=== PATIENT | male | born 1950 | race Caucasian/White ===

== ENCOUNTER → 2022-04-30 | Outpatient (CLI) | payer OTHER, MEDICARE ==
[2022-04-30] VITALS (15 sets, daily range): BP systolic 93–130; BP diastolic 34–77; PULSE 65–83; TEMP 97.5
[~2022-04-30] VITALS: Ht 165.1 cm; Wt 90.1 kg
[~2022-04-30] MED LIST: ASPIRIN E.C. 8181 MG PO; B-12 500 MCG PO; CALCIUM 600 MG1 EAC2 PO; CALTRATE-600 W600 MG PO; CLARITIN 1010 MG/TAB PO; COZAAR 25MG25 MG/TAB PO; CRESTOR5 MG PO; FLEXERIL 1010 MG/TAB PO; FOLIC ACID 40400 MCG PO; GARLIC100 MG PO; HYGROTON 2525 MG/TAB PO; IMFINZI120 MG/2.4; IRON TABLETS325 MG PO; LOPRESSOR 225 MG/TAB PO; MOBIC 7.5MG7.5 MG PO; MULTI-VITAMIN W1 TA1 PO; NIACIN FLUSH F400 MG PO; NORCO 325 MG-51 TAB PO; NORVASC 5MG5 MG/TAB PO; PREVACID 30MG30 M1 PO; REVATIO20 MG PO; VITAMIN C500 MG PO
[2022-04-30 12:33] LABS: INR 1.1 (0.8-3.0); PROTHROMBIN TIME 12.8 SECONDS (9.7-12.8)
--- NOTE | 2022-04-30 13:23 | NUR ---
Specimens obtained by Dr Trujillo and placed in formalin. Specimen labeled.
--- NOTE | 2022-04-30 13:27 | NUR ---
GEL foam placed in biopsy site by Dr Trujillo.
== END ==
LOC: COL.RAD 11:50
PROVIDERS: Radiology Diagnostic Radiology
DX: R16.0 Hepatomegaly, not elsewhere classified (principal); C34.12 Malignant neoplasm of upper lobe, left bronchus or lung
CPT/HCPCS: J1644

== ENCOUNTER 2023-01-23 09:26 | Emergency (ER) | payer MEDICARE, OTHER ==
[~2023-01-23] VITALS: Ht 165.1 cm; Wt 88.6 kg
[~2023-01-23 09:26] MED LIST changes: +LEVAQUIN 750MG750 M1 PO; +MELATONIN ER10 MG PO; +TYLENOL 500MG500 MG PO
[2023-01-23 09:32] VITALS: TEMP 98.1
[2023-01-23] MEDS ORDERED: DOXYCYCLINE 10100 MG PO (10:16)
[2023-01-23 11:03] VITALS: BP 142/78; PULSE 101
== END 2023-01-23 11:06 | disposition home or self-care (01) ==
LOC: COL.ER 09:26
DX: J40 Bronchitis, not specified as acute or chronic (principal)

== ENCOUNTER 2023-03-15 08:35 | Emergency (ER) | payer MEDICARE, OTHER ==
[~2023-03-15] VITALS: Ht 165.1 cm; Wt 86.4 kg
[~2023-03-15 08:35] MED LIST changes: +DOXYCYCLINE 10100 MG PO
[2023-03-15 08:46] VITALS: TEMP 98.5
[2023-03-15 11:06] LABS: BASO % 0.2 % (0.0-2.0); EOS % 0.7 % (0.0-4.0); GRAN # 4.5 K/mm3 (1.4-6.5); GRAN % 76.6 % (42.2-75.2); HEMATOCRIT 40.3 % (42.0-52.0); HEMOGLOBIN 12.6 g/dl (13.5-18.0); LYMPH # 0.9 K/mm3 (1.2-3.4); MEAN CELL VOLUME 108 fl (80.0-100.0); MEAN CORPUSCULAR HEMOGLOBIN 34 pg (27-31); MEAN CORPUSCULAR HGB CONC 31 g/dl (33.0-37.0); MEAN PLATELET VOLUME 9.3 fl (7.4-10.4); MONO # 0.4 K/mm3 (0.1-0.6); MONO % 6.3 % (1.7-9.3); PLATELET COUNT 125 K/mm3 (130-400); RED BLOOD COUNT 3.72 M/mm3 (4.20-5.60); REDCELL DISTRIBUTION WIDTH-CV 17.2 % (11.5-14.5)
[2023-03-15 11:20] LABS: COLLECTION METHOD CLEAN CATCH
[2023-03-15 11:21] LABS: ALBUMIN 3.1 gm/dL (3.4-4.8); BILIRUBIN,TOTAL 0.9 mg/dL (0.2-1.2); CREATININE, serum 1.38 mg/dL (0.72-1.25); POTASSIUM 4.5 mmol/L (3.5-4.5); TOTAL PROTEIN 6.5 gm/dL (6.2-8.1)
[2023-03-15 11:27] LABS: TROPONIN-I 0.01 ng/mL (0.00-0.033)
[2023-03-15 11:49] LABS: PH 6.5 (5.0-8.5); URINE APPEARANCE Clear (CLEAR/HAZY); URINE BLOOD Negative (NEGATIVE); URINE COLOR Yellow (YELLOW); URINE GLUCOSE Negative (NEGATIVE); URINE KETONE Negative (NEGATIVE); URINE NITRATE Negative (NEGATIVE); URINE PROTEIN(semi-quant) Negative (NEGATIVE); URINE UROBILINOGEN 0.2 E.U/dL (0.2-1.0)
[2023-03-15 11:50] LABS: SQUAMOUS EPITHELIAL 0-2 /hpf (0-10); URINE RBC None Seen /hpf (0-2)
[2023-03-15] MEDS ORDERED: NYSTATIN OR100 MU/ML PO (13:02)
[2023-03-15 13:18] VITALS: BP 119/84; PULSE 98
== END 2023-03-15 13:18 | disposition home or self-care (01) ==
LOC: COL.ER 08:35
PROVIDERS: Emergency Medicine
DX: B37.9 Candidiasis, unspecified (principal); C34.90 Malignant neoplasm of unspecified part of unspecified bronchus or lung; C78.7 Secondary malignant neoplasm of liver and intrahepatic bile duct; C78.5 Secondary malignant neoplasm of large intestine and rectum; T38.7X6A Underdosing of androgens and anabolic congeners, initial encounter; Z87.891 Personal history of nicotine dependence

== ENCOUNTER 2023-05-28 09:48 | Emergency (ER) | payer MEDICARE, OTHER ==
[~2023-05-28] VITALS: Ht 165.1 cm; Wt 88.6 kg
[~2023-05-28 09:48] MED LIST changes: +NYSTATIN OR100 MU/ML PO
[2023-05-28 09:53] VITALS: TEMP 97.8
[2023-05-28 10:22] LABS: BASO % 0.1 % (0.0-2.0); EOS # 0.1 K/mm3 (0.0-0.7); EOS % 1.4 % (0.0-4.0); GRAN # 5.1 K/mm3 (1.4-6.5); HEMOGLOBIN 12.4 g/dl (13.5-18.0); LYMPH # 1.5 K/mm3 (1.2-3.4); LYMPH % 20.8 % (20.0-51.0); MEAN CELL VOLUME 110 fl (80.0-100.0); MEAN CORPUSCULAR HEMOGLOBIN 35 pg (27-31); MEAN CORPUSCULAR HGB CONC 32 g/dl (33.0-37.0); MEAN PLATELET VOLUME 8.5 fl (7.4-10.4); MONO # 0.5 K/mm3 (0.1-0.6); MONO % 7.2 % (1.7-9.3); PLATELET COUNT 112 K/mm3 (130-400); RED BLOOD COUNT 3.54 M/mm3 (4.20-5.60); REDCELL DISTRIBUTION WIDTH-CV 14.3 % (11.5-14.5)
[2023-05-28 10:28] LABS: PROTHROMBIN TIME 11.2 SECONDS (9.7-12.8)
[2023-05-28 10:31] LABS: PARTIAL THROMBOPLASTIN TIME 34.4 SECONDS (26.0-37.0)
[2023-05-28 10:52] LABS: ALBUMIN 3.1 g/dL (3.4-4.8); BILIRUBIN,TOTAL 0.5 mg/dL (0.2-1.2); CALCIUM 9.2 mg/dL (8.4-10.2); CREATININE, serum 1.21 mg/dL (0.72-1.25); POTASSIUM 4.4 mEq/L (3.5-4.5); TOTAL PROTEIN 6.5 g/dl (6.2-8.1)
[2023-05-28 10:58] LABS: TROPONIN-I 0.02 ng/mL (0.00-0.033)
[2023-05-28] MEDS ORDERED: NS 100 ML IV SCH (11:10)
[2023-05-28] MEDS ORDERED: Iohexol 300 - 100 ML VIAL IV ONE (11:10)
[2023-05-28] MEDS ORDERED: PERCOCET 325 MG1 TA2 PO (12:04)
[2023-05-28 12:50] VITALS: BP 120/71; PULSE 84
== END 2023-05-28 13:00 | disposition home or self-care (01) ==
LOC: COL.ER 09:48
PROVIDERS: Family Medicine
DX: R07.89 Other chest pain (principal)
CPT/HCPCS: Q9967

== ENCOUNTER 2023-10-07 11:36 | Outpatient (CLI) | payer MEDICARE ==
[~2023-10-07] VITALS: Ht 165.1 cm; Wt 94.0 kg
[~2023-10-07 11:36] MED LIST changes: +ASPIRIN 81M81 MG/TA2 PO; +K-DUR20 MEQ PO; +LASIX 20MG TABL20 MG PO; +MULTI VITAMINS1 TAB PO; +PERCOCET 325 MG1 TA2 PO; +TESSALON P100 MG/CAP PO; +TYLENOL 8 HR PO; +VITAMIN FLUSH-F1 CAP PO
[2023-10-07] MEDS ORDERED: FOLIC ACID0.4 MG PO (12:07)
[2023-10-07] MEDS ORDERED: [UNRECOGNIZED DRUG - OTHER] PO (12:08)
[2023-10-07] MEDS ORDERED: LEUCOVORIN CAL200 MG IJ (12:10)
[2023-10-07] MEDS ORDERED: MVASI25 MG/1 ML IV (12:10)
[2023-10-07 12:11] VITALS: BP 147/77; PULSE 72; TEMP 97.5
[2023-10-07] MEDS ORDERED: 5FU 1GM/20 ML IV (12:11)
[2023-10-07 13:10] VITALS: BP 135/75; PULSE 79
[2023-10-07] MEDS ORDERED: Iohexol 180 - 10 ML VIAL IV ONE (13:14)
[2023-10-07 13:15] VITALS: BP 135/75; PULSE 78
[2023-10-07 13:30] VITALS: BP 139/61; PULSE 77
[2023-10-07 13:45] VITALS: BP 127/57; PULSE 80
[2023-10-07 14:00] VITALS: BP 124/65; PULSE 74
--- NOTE | 2023-10-07 14:44 | NUR ---
Pt assisted up to restroom after 1 hr bedrest completed. Gait steady using cane. He then sits up in recliner to await DC paperwork. States back pain now improved after being able to get out of bed. DC instructions reviewed with pt and . Both express understanding. He is assisted out to 's car by wheelchair. Bandaid remains clean, dry and intact. He is free of acute complaints at discharge.
== END 2023-10-07 14:44 | disposition home or self-care (01) ==
LOC: COL.RAD 11:36
DX: M47.896 Other spondylosis, lumbar region (principal); M48.061 Spinal stenosis, lumbar region without neurogenic claudication
CPT/HCPCS: Q9965